=== PATIENT | female | born 2000 | race Caucasian/White ===

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

== ENCOUNTER 2020-05-29 03:04 | Emergency (ER) | payer MEDICAID ==
[2020-05-29] MEDS ORDERED: Alum Hydrox/Mag Hydrox/Simeth 30 ML, Lidocaine 2% 15 ML PO ONE ×2 (03:56)
[2020-05-29] MEDS ORDERED: Sodium Chloride 0.9% 500 ML IV ONE (03:56)
[2020-05-29] MEDS ORDERED: Ondansetron 4 MG/2 ML SDV IVPUSH ONE (03:56)
[2020-05-29 04:17] LABS: ACETAMINOPHEN 28 ug/mL (10-30)
--- NOTE | 2020-05-29 04:34 | EDM.PDOCBH ---
ED HPI GENERAL MEDICAL PROBLEM - General Chief Complaint: Behavioral/Psych Stated Complaint: OVERDOSE ON PILLS Time Seen by Provider: 05/29/20 04:09 Source of Information: Reports: Patient History Limitations: Reports: No Limitations - History of Present Illness INITIAL COMMENTS - FREE TEXT/NARRATIVE: Ms. Eddy is a pleasant 19-year-old woman with a past medical history sign ificant for untreated bipolar affective disorder, anxiety, and depression, who now presents to the ED by private vehicle after attempting suicide by overdose. She states that she took 10,000 mg of aspirin around 01:00. She does not know exactly how many pills she took, but states that she counted it out, determining that she took 10,000 mg, because the bottle, which she believes contained aspiri n and caffeine, had 250 mg of aspirin. He denies coingestions with any other drugs or alcohol. She states that she told her parents immediately after of what she had done, and that they made her vomit by drinking a lot of water, however, she states that her parents did not feel that she needed to come to the ED. About 2 hours later, she was concerned and had her stepfather bring her. He states that she feels nauseated, but denies having pain, anywhere. Patient states that she has been psychiatrically hospitalized at least 4 times in the past, most recently when she was 14 years old, all for suicidal ideation, but she states that she has never previously attempted suicide. Here in the ED, the patient is found to be mildly bradycardic at 54 bpm, otherwise, she is hemodynamically stable, afebrile, saturating 100% on room air. Other than this morning's event, the patient denies having a recent fever, chills, sore throat, ear pain, nasal or sinus congestion, cough, dyspnea, chest pain, palpitations, nausea, vomiting, constipation, diarrhea, abdominal pain, urinary symptoms, recent weight gain or weight loss, recent bloody bowel movements or black bowel movements, recent joint aches, headaches, or rashes. The patient does not have a PCP or Psychiatrist. - Related Data Allergies Allergy/AdvReac Type Severity Reaction Status Date / Time bee venom protein (honey bee) Allergy Anaphylactic Verified 08/06/19 09:07 Shock perfume Allergy Cannot Verified 08/06/19 09:07 Remember pineapple Allergy Cannot Verified 12/18/19 09:07 Remember Home Meds: Home Meds Enoxaparin [Lovenox] 100 mg SQ Q12H #60 syringe 08/01/19 [Rx] Acetaminophen/HYDROcodone [[place] 325-5 MG] 1 tab PO Q6H PRN #15 tablet 08/06/19 [Rx] Past Medical History Cardiovascular History: Reports: Blood Clots/VTE/DVT (DVT when ) Psychiatric History: Reports: Anxiety (untreated), Bipolar (untreated), Depression (untreated) Endocrine/Metabolic History: Reports: Obesity/BMI 30+ Social & Family History - Tobacco Use Smoking Status *Q: Never Smoker - Alcohol Use Alcohol Use History: No - Recreational Drug Use Recreational Drug Use: No - Living Situation & Occupation Living situation: Reports: Single, with Family (Mother, stepfather, 3 brothers) Occupation: Unemployed ED ROS GENERAL - Review of Systems Review Of Systems: Comprehensive ROS is negative, except as noted in HPI. ED EXAM, BEHAVIORAL HEALTH - Physical Exam Exam: See Below Exam Limited By: No Limitations General Appearance: Alert, WD/WN, No Apparent Distress Eye Exam: Bilateral Eye: EOMI, Normal Inspection Ears: Normal External Exam, Hearing Grossly Normal Nose: Normal Inspection Throat/Mouth: Normal Inspection, Normal Lips, Normal Voice, No Airway Compromise Head: Atraumatic, Normocephalic Neck: Normal Inspection, Full Range of Motion Respiratory/Chest: No Respiratory Distress, Lungs Clear, Normal Breath Sounds, No Accessory Muscle Use Cardiovascular: Normal Peripheral Pulses, No Edema, No Gallop, No JVD, No Murmur, No Rub, Bradycardia (regular) GI/Abdominal: Normal Bowel Sounds, Soft, Non-Tender, No Organomegaly, No Distention, No Abnormal Bruit, No Mass Back Exam: Normal Inspection, Full Range of Motion, NT Extremities: Normal Inspection, Normal Range of Motion, No Pedal Edema, Normal Capillary Refill Neurological: Alert, Normal Cognition, No Motor/Sensory Deficits, Oriented x 3 Psychiatric: Depressed Mood, Tearful Skin Exam: Warm, Dry, Intact, Normal color, No rash EKG INTERPRETATION EKG Date: 05/29/20 Time: 04:58 Rhythm: Other (Sinus bradycardia) Rate (Beats/Min): 53 [place]: Normal P-Wave: Present QRS: Normal ST-T: Normal QT: Normal Comparison: NA - No Prior EKG COURSE, BEHAVIORAL HEALTH COMP - Course Vital Signs: Last Vital Signs Temp 36.5 C 05/29/20 03:38 Pulse 88 05/29/20 10:37 Resp 16 05/29/20 10:37 BP 136/69 05/29/20 10:37 Pulse Ox 100 05/29/20 10:37 Orders, Labs, Meds: Active Orders 24 hr Category Date Time Status EKG Documentation Completion [RC] STAT Care 05/29/20 04:12 Active Sodium Chloride 0.9% [Normal Saline] 1,000 ml Med 05/29/20 06:15 Active IV ASDIRECTED Medication Orders Sodium Chloride (Normal Saline) 1,000 mls @ 125 mls/hr IV ASDIRECTED YENNIFER Laboratory Tests 05/29/20 05/29/20 05/29/20 Range/Units 03:30 03:30 03:30 WBC 9.71 (3.98-10.04) K/mm3 RBC 4.94 (3.98-5.22) M/mm3 Hgb 11.6 (11.2-15.7) gm/dl Hct 37.6 (34.1-44.9) % MCV 76.1 L (79.4-94.8) fl MCH 23.5 L (25.6-32.2) pg MCHC 30.9 L (32.2-35.5) g/dl RDW Std Deviation 51.8 H (36.4-46.3) fL Plt Count 371 H D (182-369) K/mm3 MPV 10.4 (9.4-12.3) fl Neutrophils % (Manual) 61 H (40-60) % Band Neutrophils % 4 (0-10) % Lymphocytes % (Manual) 28 (20-40) % Atypical Lymphs % 0 % Monocytes % (Manual) 5 (2-10) % Eosinophils % (Manual) 2 (0.7-5.8) % Basophils % (Manual) 0 L (0.1-1.2) Platelet Estimate Adequate Plt Morphology Comment Normal Hypochromasia 2+ moderate Anisocytosis 2+ moderate RBC Morph Comment Not Reportable PT (9.7-11.7) SECONDS INR APTT (22-31) SECONDS Puncture Site ABG pH (7.35-7.45) ABG pCO2 (35.0-45.0) mmHg ABG pO2 (80.0-100.0) mmHg ABG HCO3 (22.0-26.0) meq/L ABG O2 Saturation (96.0-97.0) % ABG Base Excess (-2-2.0) Marco Test A-a Gradient mmHg O2 Delivery Device Oxygen Flow Rate FiO2 (21.00-100.00) % Sodium 141 (136-145) mEq/L Potassium 3.1 L (3.5-5.1) mEq/L Chloride 102 (98-107) mEq/L Carbon Dioxide 26 (21-32) mEq/L Anion Gap 16.1 H (5-15) BUN 19 H (7-18) mg/dL Creatinine 0.8 (0.55-1.02) mg/dL Est Cr Clr Drug Dosing 118.21 mL/min Estimated GFR (MDRD) > 60 (>60) mL/min BUN/Creatinine Ratio 23.8 H (14-18) Glucose 118 H (74-106) mg/dL Lactic Acid (0.4-2.0) mmol/L Calcium 9.0 (8.5-10.1) mg/dL Total Bilirubin 0.2 (0.2-1.0) mg/dL Direct Bilirubin (0.0-0.2) mg/dl Indirect Bilirubin AST 23 (15-37) U/L ALT 54 (14-59) U/L Alkaline Phosphatase 120 H (46-116) U/L Total Protein 8.2 (6.4-8.2) g/dl Albumin 3.7 (3.4-5.0) g/dl Globulin 4.5 gm/dL Albumin/Globulin Ratio 0.8 L (1-2) TSH 3rd Generation (0.516-4.13) uIU/mL Urine HCG, Qual (NEGATIVE) Salicylates 21.7 H (2.8-20) mg/dL Urine Opiates Screen (ZVGRHO=830) Ur Buprenorphine Scrn (CUTOFF=10) Ur Oxycodone Screen (ZVQ2BY=510) Urine Methadone Screen (YENOMC=505) Ur Propoxyphene Screen (DOPTJX=584) Acetaminophen 28 (10-30) ug/mL Ur Barbiturates Screen (SHHXFY=497) Ur Tricyclics Screen (NBGZIK=528) Ur Phencyclidine Scrn (CUTOFF=25) Ur Amphetamine Screen (VKBAMX=727) U Methamphetamines Scrn (TEPNNX=403) U Benzodiazepines Scrn (WNHOMQ=959) U Cocaine Metab Screen (VCUVKQ=946) U Marijuana (THC) Screen (CUTOFF=50) Ethyl Alcohol 0.00 (0.00) gm% SARS-CoV-2 RNA (JUSTIN) (NEGATIVE) 05/29/20 05/29/20 05/29/20 Range/Units 03:30 03:30 04:09 WBC (3.98-10.04) K/mm3 RBC (3.98-5.22) M/mm3 Hgb (11.2-15.7) gm/dl Hct (34.1-44.9) % MCV (79.4-94.8) fl MCH (25.6-32.2) pg MCHC (32.2-35.5) g/dl RDW Std Deviation (36.4-46.3) fL Plt Count (182-369) K/mm3 MPV (9.4-12.3) fl Neutrophils % (Manual) (40-60) % Band Neutrophils % (0-10) % Lymphocytes % (Manual) (20-40) % Atypical Lymphs % % Monocytes % (Manual) (2-10) % Eosinophils % (Manual) (0.7-5.8) % Basophils % (Manual) (0.1-1.2) Platelet Estimate Plt Morphology Comment Hypochromasia Anisocytosis RBC Morph Comment PT 10.6 (9.7-11.7) SECONDS INR 0.99 APTT 25 (22-31) SECONDS Puncture Site Lt radial ABG pH 7.57 H (7.35-7.45) ABG pCO2 25.0 L (35.0-45.0) mmHg ABG pO2 107.0 H (80.0-100.0) mmHg ABG HCO3 23.0 (22.0-26.0) meq/L ABG O2 Saturation 98.8 H (96.0-97.0) % ABG Base Excess 2.0 (-2-2.0) Marco Test Positive A-a Gradient 11 mmHg O2 Delivery Device Room air Oxygen Flow Rate 0.0 FiO2 21.00 (21.00-100.00) % Sodium (136-145) mEq/L Potassium (3.5-5.1) mEq/L Chloride (98-107) mEq/L Carbon Dioxide (21-32) mEq/L Anion Gap (5-15) BUN (7-18) mg/dL Creatinine (0.55-1.02) mg/dL Est Cr Clr Drug Dosing mL/min Estimated GFR (MDRD) (>60) mL/min BUN/Creatinine Ratio (14-18) Glucose (74-106) mg/dL Lactic Acid (0.4-2.0) mmol/L Calcium (8.5-10.1) mg/dL Total Bilirubin (0.2-1.0) mg/dL Direct Bilirubin (0.0-0.2) mg/dl Indirect Bilirubin AST (15-37) U/L ALT (14-59) U/L Alkaline Phosphatase (46-116) U/L Total Protein (6.4-8.2) g/dl Albumin (3.4-5.0) g/dl Globulin gm/dL Albumin/Globulin Ratio (1-2) TSH 3rd Generation 2.453 (0.516-4.13) uIU/mL Urine HCG, Qual (NEGATIVE) Salicylates (2.8-20) mg/dL Urine Opiates Screen (OBRJHP=750) Ur Buprenorphine Scrn (CUTOFF=10) Ur Oxycodone Screen (KLE1OH=997) Urine Methadone Screen (HSNBNP=134) Ur Propoxyphene Screen (RXVRKO=992) Acetaminophen (10-30) ug/mL Ur Barbiturates Screen (VELRTB=870) Ur Tricyclics Screen (EMRZVQ=613) Ur Phencyclidine Scrn (CUTOFF=25) Ur Amphetamine Screen (GLIZOX=800) U Methamphetamines Scrn (DSGSYN=595) U Benzodiazepines Scrn (GGPELC=112) U Cocaine Metab Screen (WRGWCT=752) U Marijuana (THC) Screen (CUTOFF=50) Ethyl Alcohol (0.00) gm% SARS-CoV-2 RNA (JUSTIN) (NEGATIVE) 05/29/20 05/29/20 05/29/20 Range/Units 04:40 06:13 06:13 WBC (3.98-10.04) K/mm3 RBC (3.98-5.22) M/mm3 Hgb (11.2-15.7) gm/dl Hct (34.1-44.9) % MCV (79.4-94.8) fl MCH (25.6-32.2) pg MCHC (32.2-35.5) g/dl RDW Std Deviation (36.4-46.3) fL Plt Count (182-369) K/mm3 MPV (9.4-12.3) fl Neutrophils % (Manual) (40-60) % Band Neutrophils % (0-10) % Lymphocytes % (Manual) (20-40) % Atypical Lymphs % % Monocytes % (Manual) (2-10) % Eosinophils % (Manual) (0.7-5.8) % Basophils % (Manual) (0.1-1.2) Platelet Estimate Plt Morphology Comment Hypochromasia Anisocytosis RBC Morph Comment PT (9.7-11.7) SECONDS INR APTT (22-31) SECONDS Puncture Site ABG pH (7.35-7.45) ABG pCO2 (35.0-45.0) mmHg ABG pO2 (80.0-100.0) mmHg ABG HCO3 (22.0-26.0) meq/L ABG O2 Saturation (96.0-97.0) % ABG Base Excess (-2-2.0) Marco Test A-a Gradient mmHg O2 Delivery Device Oxygen Flow Rate FiO2 (21.00-100.00) % Sodium 140 (136-145) mEq/L Potassium 3.4 L (3.5-5.1) mEq/L Chloride 103 (98-107) mEq/L Carbon Dioxide 25 (21-32) mEq/L Anion Gap 15.4 H (5-15) BUN 16 (7-18) mg/dL Creatinine 0.8 (0.55-1.02) mg/dL Est Cr Clr Drug Dosing 118.21 mL/min Estimated GFR (MDRD) > 60 (>60) mL/min BUN/Creatinine Ratio 20.0 H (14-18) Glucose 113 H (74-106) mg/dL Lactic Acid 1.1 (0.4-2.0) mmol/L Calcium 9.0 (8.5-10.1) mg/dL Total Bilirubin Cancelled (0.2-1.0) mg/dL Direct Bilirubin (0.0-0.2) mg/dl Indirect Bilirubin AST Cancelled (15-37) U/L ALT Cancelled (14-59) U/L Alkaline Phosphatase Cancelled (46-116) U/L Total Protein Cancelled (6.4-8.2) g/dl Albumin Cancelled (3.4-5.0) g/dl Globulin Cancelled gm/dL Albumin/Globulin Ratio Cancelled (1-2) TSH 3rd Generation (0.516-4.13) uIU/mL Urine HCG, Qual (NEGATIVE) Salicylates 17.3 (2.8-20) mg/dL Urine Opiates Screen (RZAXIC=811) Ur Buprenorphine Scrn (CUTOFF=10) Ur Oxycodone Screen (OYU7UM=495) Urine Methadone Screen (FAYLYV=520) Ur Propoxyphene Screen (OWJKJX=826) Acetaminophen 13 (10-30) ug/mL Ur Barbiturates Screen (OXNYGD=351) Ur Tricyclics Screen (DHILJM=297) Ur Phencyclidine Scrn (CUTOFF=25) Ur Amphetamine Screen (RBVFKK=243) U Methamphetamines Scrn (VIFSKV=029) U Benzodiazepines Scrn (YWANIQ=463) U Cocaine Metab Screen (SNBQBD=978) U Marijuana (THC) Screen (CUTOFF=50) Ethyl Alcohol (0.00) gm% SARS-CoV-2 RNA (JUSTIN) (NEGATIVE) 05/29/20 05/29/20 05/29/20 Range/Units 06:55 06:55 07:22 WBC (3.98-10.04) K/mm3 RBC (3.98-5.22) M/mm3 Hgb (11.2-15.7) gm/dl Hct (34.1-44.9) % MCV (79.4-94.8) fl MCH (25.6-32.2) pg MCHC (32.2-35.5) g/dl RDW Std Deviation (36.4-46.3) fL Plt Count (182-369) K/mm3 MPV (9.4-12.3) fl Neutrophils % (Manual) (40-60) % Band Neutrophils % (0-10) % Lymphocytes % (Manual) (20-40) % Atypical Lymphs % % Monocytes % (Manual) (2-10) % Eosinophils % (Manual) (0.7-5.8) % Basophils % (Manual) (0.1-1.2) Platelet Estimate Plt Morphology Comment Hypochromasia Anisocytosis RBC Morph Comment PT (9.7-11.7) SECONDS INR APTT (22-31) SECONDS Puncture Site ABG pH (7.35-7.45) ABG pCO2 (35.0-45.0) mmHg ABG pO2 (80.0-100.0) mmHg ABG HCO3 (22.0-26.0) meq/L ABG O2 Saturation (96.0-97.0) % ABG Base Excess (-2-2.0) Marco Test A-a Gradient mmHg O2 Delivery Device Oxygen Flow Rate FiO2 (21.00-100.00) % Sodium (136-145) mEq/L Potassium (3.5-5.1) mEq/L Chloride (98-107) mEq/L Carbon Dioxide (21-32) mEq/L Anion Gap (5-15) BUN (7-18) mg/dL Creatinine (0.55-1.02) mg/dL Est Cr Clr Drug Dosing mL/min Estimated GFR (MDRD) (>60) mL/min BUN/Creatinine Ratio (14-18) Glucose (74-106) mg/dL Lactic Acid (0.4-2.0) mmol/L Calcium (8.5-10.1) mg/dL Total Bilirubin (0.2-1.0) mg/dL Direct Bilirubin (0.0-0.2) mg/dl Indirect Bilirubin AST (15-37) U/L ALT (14-59) U/L Alkaline Phosphatase (46-116) U/L Total Protein (6.4-8.2) g/dl Albumin (3.4-5.0) g/dl Globulin gm/dL Albumin/Globulin Ratio (1-2) TSH 3rd Generation (0.516-4.13) uIU/mL Urine HCG, Qual Negative (NEGATIVE) Salicylates (2.8-20) mg/dL Urine Opiates Screen Negative (JKTBTJ=528) Ur Buprenorphine Scrn Negative (CUTOFF=10) Ur Oxycodone Screen Negative (QGU8SQ=486) Urine Methadone Screen Negative (XBWNXT=799) Ur Propoxyphene Screen Negative (LPHLIX=439) Acetaminophen (10-30) ug/mL Ur Barbiturates Screen Negative (OQJLYX=584) Ur Tricyclics Screen Negative (QSIJOC=450) Ur Phencyclidine Scrn Negative (CUTOFF=25) Ur Amphetamine Screen Negative (EQCHPU=027) U Methamphetamines Scrn Negative (XXNHZG=557) U Benzodiazepines Scrn Negative (GFYXXA=974) U Cocaine Metab Screen Negative (KPXBGI=679) U Marijuana (THC) Screen Negative (CUTOFF=50) Ethyl Alcohol (0.00) gm% SARS-CoV-2 RNA (JUSTIN) Negative (NEGATIVE) 05/29/20 05/29/20 Range/Units 10:19 10:19 WBC (3.98-10.04) K/mm3 RBC (3.98-5.22) M/mm3 Hgb (11.2-15.7) gm/dl Hct (34.1-44.9) % MCV (79.4-94.8) fl MCH (25.6-32.2) pg MCHC (32.2-35.5) g/dl RDW Std Deviation (36.4-46.3) fL Plt Count (182-369) K/mm3 MPV (9.4-12.3) fl Neutrophils % (Manual) (40-60) % Band Neutrophils % (0-10) % Lymphocytes % (Manual) (20-40) % Atypical Lymphs % % Monocytes % (Manual) (2-10) % Eosinophils % (Manual) (0.7-5.8) % Basophils % (Manual) (0.1-1.2) Platelet Estimate Plt Morphology Comment Hypochromasia Anisocytosis RBC Morph Comment PT (9.7-11.7) SECONDS INR APTT (22-31) SECONDS Puncture Site ABG pH (7.35-7.45) ABG pCO2 (35.0-45.0) mmHg ABG pO2 (80.0-100.0) mmHg ABG HCO3 (22.0-26.0) meq/L ABG O2 Saturation (96.0-97.0) % ABG Base Excess (-2-2.0) Marco Test A-a Gradient mmHg O2 Delivery Device Oxygen Flow Rate FiO2 (21.00-100.00) % Sodium (136-145) mEq/L Potassium (3.5-5.1) mEq/L Chloride (98-107) mEq/L Carbon Dioxide (21-32) mEq/L Anion Gap (5-15) BUN (7-18) mg/dL Creatinine (0.55-1.02) mg/dL Est Cr Clr Drug Dosing mL/min Estimated GFR (MDRD) (>60) mL/min BUN/Creatinine Ratio (14-18) Glucose (74-106) mg/dL Lactic Acid (0.4-2.0) mmol/L Calcium (8.5-10.1) mg/dL Total Bilirubin 0.2 (0.2-1.0) mg/dL Direct Bilirubin 0.10 (0.0-0.2) mg/dl Indirect Bilirubin 0.10 AST 26 (15-37) U/L ALT 47 (14-59) U/L Alkaline Phosphatase 105 (46-116) U/L Total Protein 6.8 (6.4-8.2) g/dl Albumin 3.4 (3.4-5.0) g/dl Globulin 3.4 gm/dL Albumin/Globulin Ratio 1.0 (1-2) TSH 3rd Generation (0.516-4.13) uIU/mL Urine HCG, Qual (NEGATIVE) Salicylates 11.6 (2.8-20) mg/dL Urine Opiates Screen (INQIQE=578) Ur Buprenorphine Scrn (CUTOFF=10) Ur Oxycodone Screen (MIR9ML=281) Urine Methadone Screen (VANDDJ=699) Ur Propoxyphene Screen (EDNVWC=315) Acetaminophen (10-30) ug/mL Ur Barbiturates Screen (LNUJWJ=694) Ur Tricyclics Screen (TKBJXD=702) Ur Phencyclidine Scrn (CUTOFF=25) Ur Amphetamine Screen (YEXLMD=130) U Methamphetamines Scrn (JUUXWH=257) U Benzodiazepines Scrn (KWZNOV=843) U Cocaine Metab Screen (QHAPFG=937) U Marijuana (THC) Screen (CUTOFF=50) Ethyl Alcohol (0.00) gm% SARS-CoV-2 RNA (JUSTIN) (NEGATIVE) Medications Generic Name Dose Route Start Last Admin Trade Name Freq PRN Reason Stop Dose Admin Sodium Chloride 1,000 mls @ 125 mls/hr 05/29/20 06:15 Normal Saline IV ASDIRECTED YENNIFER Discontinued Medications Generic Name Dose Route Start Last Admin Trade Name Freq PRN Reason Stop Dose Admin Al Hydroxide/Mg Hydroxide 30 0 ml 05/29/20 03:56 ml/ Lidocaine HCl 15 ml PO 05/29/20 03:57 ONETIME ONE Sodium Chloride 500 mls @ 999 mls/hr 05/29/20 03:56 05/29/20 04:49 Normal Saline IV 05/29/20 04:26 999 mls/hr .BOLUS ONE Administration Ondansetron HCl 4 mg 05/29/20 03:56 05/29/20 04:49 Zofran IVPUSH 05/29/20 03:57 4 mg ONETIME ONE Administration Medical Clearance: 05/29/20 04:34 As above, the patient states that she took 10,000 mg of aspirin around 01:00 this morning, as a suicide attempt, but states that she vomited soon for words. She denies coingestion with alcohol. While the patient states that she has been psychiatrically hospitalized at least 4 times in the past, most recently when she was 14 years old, she states that she has never previously attempted suicide. It is not entirely certain if the patient actually took aspirin. She states that the bottle read 250 mg of something that started with an "A", along with caffeine. The patient's nurse contacted Poison Control, then ordered a CMP, salicylate level, acetaminophen level, EtOH level, and ABG. I have added a CBC, TSH level, coags, lactic acid level, urine test, a urine drug screen, an ECG, and a swab for the SARS-CoV-2 virus. At this time, she is lucid, therefore CT of the head to look for cerebral edema is not indicated, and her oxygen saturation is 100%, therefore chest x-ray to look for pulmonary edema is not indicated, however, we will monitor for changes in both of these. 05/29/20 05:15 The patient's CBC is remarkable for platelets modestly elevated at 371,000, with the remainder of her CBC being unremarkable. Her CMP is remarkable for a potassium depressed at 3.1, and a BUN slightly elevated at 19, with a Cr within normal limits at 0.8. Her blood glucose is slightly elevated at 118. Her alkaline phosphatase is slightly elevated at 120, with the remainder of her CMP being unremarkable. Her TSH is within normal limits at 2.457. Her salicylate level is elevated at 21.7. Her acetaminophen level is elevated at 28. Her EtOH level is 0.00. Her coags are within normal limits. Her ABG represents a combined respiratory alkalosis and metabolic alkalosis. The patient's lactic acid level, urine test, urine drug screen, and swab for the SARS-CoV-2 virus have not yet been collected. 05/29/20 06:03 The patient's lactic acid level is within normal limits at 1.1. A urine sample for a urine test and urine drug screen, and a swab for the SARS-CoV-2 virus have not yet been collected. Notified by Missy PETIT that poison control would like us to repeat the BMP, salicylate level, and acetaminophen level. I have ordered these. 05/29/20 08:18 The patient's urine test is negative. Her urine drug screen is completely negative. Her repeat BMP is remarkable for a potassium slightly depressed at 3.4, and an anion gap slightly elevated at 15.4, but with a bicarbonate normal at 25. Her blood glucose is slightly elevated at 113, with the remainder of her BMP being unremarkable. Repeat salicylate level is down to 17.3. Her repeat acetaminophen level is down to 13. The swab for the SARS-CoV-2 virus has not yet resulted. 05/29/20 08:54 The swab for the SARS-CoV-2 virus has returned negative. We will endeavor to find a psychiatric bed for the patient. 05/29/20 09:13 Case discussed with Rhea at [facility] at 08:58. Case then discussed with Dr. Virgen, Psychiatrist at [facility], at 09:06. She would like us to recheck the patient's LFTs and obtaining them off the previously drawn BMP blood, if possible, is acceptable. To then let them know of the LFT results. She would also like me to place the patient under an emergency residential, and fax that paperwork for their review. She will hold a bed for the patient, and accept the patient for admission, provided all is in order. 05/29/20 09:21 I spoke with the lab, and they are able to add LFTs to the previously drawn BMP. 05/29/20 09:30 Notified that Poison Control called and recommended that we repeat another salicylate level, just to confirm to trending downward values. We will order a repeat salicylate level. 05/29/20 10:55 The patient's repeat LFTs are all completely normal. Her repeat salicylate level is down to 11.6. The patient will be supported to [facility] by the [facility]'s department. Departure - Departure Time of Disposition: 10:56 Disposition: Home, Self-Care 01 Condition: Good Clinical Impression: Suicide attempt by drug overdose - Discharge Information *PRESCRIPTION DRUG MONITORING PROGRAM REVIEWED*: Not Applicable *COPY OF PRESCRIPTION DRUG MONITORING REPORT IN PATIENT LIDIA: Not Applicable Referrals: PCP,None [Primary Care Provider] - Forms: ED Department Discharge Sepsis Event Note (ED) - Evaluation Sepsis Screening Result: No Definite Risk - Focused Exam Vital Signs: Vital Signs Temp Pulse Resp BP Pulse Ox 05/29/20 10:37 88 16 136/69 100 05/29/20 03:38 36.5 C 54 L 16 135/82 100 - My Orders Last 24 Hours: My Active Orders 05/29/20 04:12 EKG Documentation Completion [RC] STAT 05/29/20 06:15 Sodium Chloride 0.9% [Normal Saline] 1,000 ml IV ASDIRECTED - Assessment/Plan Last 24 Hours: My Active Orders 05/29/20 04:12 EKG Documentation Completion [RC] STAT 05/29/20 06:15 Sodium Chloride 0.9% [Normal Saline] 1,000 ml IV ASDIRECTED
[2020-05-29] MEDS ORDERED: Sodium Chloride 0.9% 1,000 ML IV SCH (06:15)
[2020-05-29 06:57] LABS: ACETAMINOPHEN 13 ug/mL (10-30)
== END 2020-05-29 11:20 | disposition home or self-care (01) ==
LOC: JD.ED 03:04
DX: T39.012A Poisoning by aspirin, intentional self-harm, initial encounter (principal); E66.9 Obesity, unspecified; Z68.32 Body mass index [BMI] 32.0-32.9, adult; Z91.030 Bee allergy status; Z91.013 Allergy to seafood; Z91.018 Allergy to other foods; Z91.048 Other nonmedicinal substance allergy status; Z79.01 Long term (current) use of anticoagulants; Z86.718 Personal history of other venous thrombosis and embolism; Z20.828 Contact with and (suspected) exposure to other viral communicable diseases
CPT/HCPCS: 36415; 36600; 80048; 80053; 80076; 80306; 80307; 81025; 82803; 83605; 84443; 85007; 85027; 85610; 85730; 87635; 93005; 96361; 96374; 99285; J2405; J7030; 93010; U0002